=== PATIENT | female | born 1945 | race Caucasian/White ===

== ENCOUNTER 2016-05-04 10:56 | Emergency (ER) | payer MEDICARE ==
[~2016-05-04] VITALS: Ht 149.8 cm; Wt 65.3 kg
[~2016-05-04 10:56] MED LIST: ADVIL200 MG PO; AMOXICILLIN500 MG PO; AUGMENTIN 875 M1 TA1 PO; CIPRO250 MG PO; CITALOPRAM20 MG PO; CLINDAMYCIN300 MG PO; LEVAQUIN750 MG PO; PREDNISONE20 MG PO; PREDNISONE50 MG PO; RESTORIL15 MG PO; RESTORIL30 MG PO; ROBITUSSIN DM 105 ML PO; SYMBICORT1 AE1 INH; TEMAZEPAM30 MG PO; VIBRAMYCIN100 MG PO; VICODIN 5/500 505 MG PO; VICODIN ES 7501 TA1 PO; ZITHROMAX250 MG PO; ZOCOR40 MG PO; [UNRECOGNIZED DRUG - OTHER]
[2016-05-04 11:55] LABS: BASO % 0.7 % (0.0-1.0); EOS % 0.7 % (1.0-4.0); HEMATOCRIT 40.4 % (37.0-47.0); HEMOGLOBIN 13.2 g/dl (12.0-16.0); IG # 0.1 10*3/uL (0.0-0.1); LYMPH # 0.6 10*3/uL (1.3-4.4); LYMPH % 12.7 % (27.0-41.0); MEAN CELL VOLUME 93.1 fl (81.0-99.0); MEAN CORPUSCULAR HGB 30.4 pg (27.0-31.0); MEAN CORPUSCULAR HGB CONC 32.7 g/dl (33.0-37.0); MEAN PLATELET VOLUME 9.2 fl (9.6-12.3); MONO # 0.4 10*3/uL (0.1-1.0); MONO % 8.8 % (3.0-9.0); NEUT # 3.5 10*3/uL (2.3-7.9); PLATELET COUNT AUTOMATED 166 10*3/uL (130-400); RED BLOOD COUNT 4.34 10*6/uL (4.10-5.10); RED CELL DISTRI WIDTH 12.4 % (0-14.5); WHITE BLOOD COUNT 4.6 10*3/uL (4.8-10.8)
[2016-05-04 12:11] LABS: ALBUMIN 3.4 gm/dl (3.1-4.5); ALKALINE PHOSPHATASE 90 U/L (45-117); BILIRUBIN, TOTAL 0.4 mg/dl (0.2-1.0); BUN 18 mg/dl (7-24); CARBON DIOXIDE 23 mmol/L (21-32); CHLORIDE 106 mmol/L (98-107); EST GLOM FILT AFRICAN AMERICAN > 60 ml/min; GLUCOSE 86 mg/dL (65-99); POTASSIUM 3.6 mmol/L (3.5-5.1); SGOT/AST 20 IU/L (3-35); SGPT/ALT 24 U/L (12-78); SODIUM 141 mmol/L (136-145); TOTAL PROTEIN 7.1 gm/dL (6.4-8.2)
[2016-05-04 12:26] LABS: TROPONIN I < 0.015 ng/ml (<0.5)
[2016-05-04] MEDS ORDERED: DOXYCYCLINE100 M3 PO (13:07)
[2016-05-12] MEDS ORDERED: PREDNISONE10 MG PO (13:58)
[2016-05-12] MEDS ORDERED: VENTOLIN H0.09 MG/AC INH (13:58)
[2016-05-12] MEDS ORDERED: LISINOPRIL10 M1 PO (13:58)
[2016-05-12] MEDS ORDERED: LEVOFLOXACIN500 MG PO (13:58)
== END 2016-05-04 13:19 | disposition home or self-care (01) ==
LOC: ED 10:56
PROVIDERS: Internal Medicine
DX: J40 Bronchitis, not specified as acute or chronic (principal); Z88.0 Allergy status to penicillin; Z88.6 Allergy status to analgesic agent; Z79.899 Other long term (current) drug therapy

== ENCOUNTER → 2016-07-12 | Outpatient (CLI) | payer MEDICARE ==
[~2016-07-12] MED LIST changes: +DOXYCYCLINE100 M3 PO; +LEVOFLOXACIN500 MG PO; +LISINOPRIL10 M1 PO; +PREDNISONE10 MG PO; +VENTOLIN H0.09 MG/AC INH
== END | disposition home or self-care (01) ==
LOC: RAD 11:15
DX: M81.0 Age-related osteoporosis without current pathological fracture (principal)

== ENCOUNTER → 2017-10-13 | Outpatient (CLI) | payer MEDICARE ==
[~2017-10-13] MED LIST changes: +CEFDINIR300 MG PO; +LOPRESSOR25 MG PO; +MUCINEX ER600 MG PO
== END | disposition home or self-care (01) ==
LOC: MAMMO 08:32
DX: Z12.31 Encounter for screening mammogram for malignant neoplasm of breast (principal)

== ENCOUNTER 2017-10-15 18:37 | Inpatient (IN) | payer MEDICARE ==
[~2017-10-15] VITALS: Ht 149.8 cm; Wt 68.5 kg
--- NOTE | ~2017-10-15 | PR ---
[place], [place] PROGRESS NOTE NAME: JARAD ZAPIEN [facility] #: [id number] UNIT #: [id number] ROOM: [facility] DOCTOR: MOMO ADAN MD,ZULEMA BIRTHDATE: [birth year] DOS: 10/18/2017 SUBJECTIVE: The patient noted comfortable at this time, continued to show reduction and improvement in the respiratory symptoms, underwent cardiac stress test, which are noted normal. The patient was given the unfractionated therapeutic heparin, which was discontinued after that. Respiratory whaley, she has been doing very well at this time. Denies symptoms of coughing, sputum expectoration or any chest pain at the present time. The chest x-ray that has been ordered for the patient tomorrow was pending. OBJECTIVE: VITAL SIGNS: Which were recorded showed the temperature noted as normal. The respiratory rate of 18, heart rate of 70, blood pressure 145/69. Pulse ox saturation on 2 liters nasal cannula 95% saturation. HEENT: Head was atraumatic. Eyes nonicterus. NECK: Supple. CARDIOVASCULAR: S1, S2 is audible. LUNGS: The patient was noted without any wheezing. Crackles noted still in the right lower lung base. ABDOMEN: Soft, nontender. Bowel sounds present. EXTREMITIES: Noted without any acute edema. IMPRESSION: 1. Right lower lobe pneumonia with a small pleural fluid, which has been treated with intravenous antibiotic at this time. 2. Elevation of the troponin mildly nonspecific finding, significance unknown. PLAN OF TREATMENT: No changes in the plan of therapy. Proceed with the chest x-ray tomorrow morning, which is already ordered by the primary care attending to review. Continue antibiotics and other treatment therapy, plan of management. The patient could be transferred from the Intensive Care Unit to medical floor. ZULEMA BARR MD CM:PNTRANS [id number] ZULEMA ADAN MD 10/18/17 2332 interface
--- NOTE | ~2017-10-15 | EKG ---
[place], [place] ELECTROCARDIOGRAM REPORT NAME: JARAD ZAPIEN UNIT #: [id number] ROOM: [facility] DOCTOR: MARIA ESTHER ROY,TONYA BIRTHDATE: [birth year] DOS: 10/15/2017 TIME: 1933 hours. FINDINGS: 1. Normal sinus rhythm/sinus tachycardia at 106 beats per minute. 2. Minimal ST segment depression with T-wave abnormality in V3-V6 that raises the possibility of ischemia. 3. No previous tracing is available for comparison. TONYA MAYO MD CM:EKGRPT:ELECTROCARDIOGRAM REPORT 1139 [id number] TONYA MAYO MD
--- NOTE | ~2017-10-15 | PR ---
[place], [place] PROGRESS NOTE NAME: JARAD ZAPIEN [facility] #: [id number] UNIT #: [id number] ROOM: [facility] DOCTOR: MOMO ADAN MD,ZULEMA BIRTHDATE: [birth year] DOS: 10/17/2017 PULMONARY PROGRESS NOTE SUBJECTIVE: She has been noted with continued gradual reduction and improvement in respiratory symptoms of coughing and other symptoms. Denies any symptoms of chest pain or hemoptysis. She has been currently treated for the right lower lobe pneumonia. Blood cultures of the patient, which were taken 7th of this month in the Emergency Room, reported a gram-positive bacilli, pending identification sensitivities. She denies symptoms of hemoptysis. Continue on the intravenous therapeutic unfractionated heparin for the medical management of suspected non-ST segment elevation myocardial infarction. She denies symptoms of hematuria. Denies suprapubic pain. Remaining systems were reviewed, they were noted all negative. OBJECTIVE: VITAL SIGNS: For the patient which have been recorded shows she has a normal temperature, respiratory rate 16, heart rate 88, blood pressure 116/60-115/65, pulse oxygen saturation recorded on 2 liters nasal cannula 93% saturation. HEENT: Examination shows head was atraumatic. Eyes nonicterus. NECK: Supple. LUNGS: Decreased breath sounds. Crackles still noted in the right lower lobe. ABDOMEN: Soft, nontender. Bowel sounds present. EXTREMITIES: Without any acute edema. MUSCULOSKELETAL: No deformities. SKIN: Noted no abnormal lesions or rashes. CENTRAL NERVOUS SYSTEM: No focal deficit. LABORATORY DATA: Chest x-ray that was done yesterday noted with evidence of a small area of infiltration noted in the right lower lobe for this patient. There was no significant pleural fluid. Area of pulmonary fibrosis and/or infiltrate was also considered in the right lower lobe as well. Changes of COPD and hyperinflation. Pleural thickening noted in the left apex as well. IMPRESSION: 1. The patient currently noted with acute pneumonia involving the right lower lobe. 2. Gram-positive bacilli bacteremia. Contamination or severe infection is unknown. 3. Chronic change in pleural thickening noted in the left apex as well. 4. Non-ST segment elevation myocardial infarction, currently remains on the heparin, which was noted as therapeutic dose with PTT was noted as therapeutic at 70. PLAN OF MANAGEMENT: Continuation of antibiotics, bronchodilators, oxygen supplementation, cardiac workup. Bronchodilator, the treatment therapy, plan of management and care plan. Usual care. All other supportive plan of therapy and management, plan of care. Adjustment of the antibiotic will be done. The patient will discontinue the vancomycin and she will continue on aztreonam and [place], [place] PROGRESS NOTE NAME: JARAD ZAPIEN UNIT #: [id number] ROOM: [facility] DOCTOR: MOMO ADAN MD,ZULEMA BIRTHDATE: [birth year] Zithromax for the community-acquired infection. Other cardiac recommendation per Cardiology Services. ZULEMA BARR MD CM:PNTRANS [id number] ZULEMA ADAN MD 10/17/17 1340 interface
--- NOTE | ~2017-10-15 | PR ---
[place], [place] PROGRESS NOTE NAME: JARAD ZAPIEN [facility] #: [id number] UNIT #: [id number] ROOM: [facility] DOCTOR: AGUSTÍN ALDRICH MD BIRTHDATE: [birth year] DOS: 10/18/2017 SUBJECTIVE I saw her on behalf of Dr. Lagos. The patient was seen by Dr. Lagos yesterday. The patient had a stress test done by Dr. Rao. No evidence of ischemia. Ejection fraction is well preserved. The patient appears to be stable. She is still on heparin drip, which could be discontinued. REVIEW OF SYSTEMS: As per HPI. Does complaint of fever. Does have shortness of breath. No chest discomfort. Complains of diaphoresis. No abdominal pain, pressure is stable. OBJECTIVE: VITAL SIGNS: Her blood pressure is 140/60. She is in sinus rhythm. HEENT: Unremarkable. NECK: Supple, no JVD. LUNGS: Diminished air entry. Few coarse rhonchi. ABDOMEN: Soft, nontender. EXTREMITIES: Intact pulses. NEUROLOGIC: Stable. LABORATORY DATA: Sodium 142 and potassium 3.7. Hemoglobin 12.8 and hematocrit 40.3. IMPRESSION AND PLAN: Septicemia, pneumonia, exacerbation of chronic obstructive pulmonary disease, and elevated troponin, probably type 2. As the stress test is negative, no evidence of ischemia. Discontinue the heparin. Continue the IV antibiotics. Increase activity, and will follow up. The patient is examined in the Intensive Care Unit. AGUSTÍN ALDRICH MD CM:PNTRANS [id number] AGUSTÍN ALDRICH MD 10/25/17 0827 interface
--- NOTE | ~2017-10-15 | EKG ---
[place], [place] ELECTROCARDIOGRAM REPORT NAME: JARAD ZAPIEN UNIT #: [id number] ROOM: [facility] DOCTOR: TONYA MAYO MD BIRTHDATE: [birth year] DOS: 10/15/2017 TIME: 2245 hours. FINDINGS: 1. Normal sinus rhythm at 95 beats per minute with a single PVC. 2. Low voltage T waves in V3 to V6. 3. An abnormal ECG. 4. When compared with an ECG done at 1923 hours of the same day, minimal ST segment depression in chest leads has resolved. TONYA MAYO MD CM:EKGRPT:ELECTROCARDIOGRAM REPORT 1139 1511 TONYA MAYO MD
--- NOTE | ~2017-10-15 | CON ---
[place], [place] REPORT OF CONSULTATION NAME: JARAD ZAPIEN [facility] #: [id number] UNIT #: [id number] ROOM: [facility] DOCTOR: ZULEMA ABBASI MD BIRTHDATE: [birth year] DOS: 10/16/2017 PULMONARY CONSULTATION, EVALUATION AND MANAGEMENT REQUESTING PHYSICIAN: Dr. [place] Rao. REASON FOR CONSULTATION: For assessment of symptoms of COPD. HISTORY OF PRESENT ILLNESS: This is a 72-year-old white female patient who has been known with past history of COPD, which has been known previously, presented to the hospital under the hospitalist service, and admitted. She has been admitted to the hospital, as she has been experiencing symptoms of increased shortness of breath, which has been getting gradually worsen for the past couple of days. Symptoms, are not resolving. She was also noted with symptoms of coughing with some sputum expectoration. Denies symptoms of chest pain or hemoptysis. The wheezing was noted at times with chest tightness. She has been also reported with symptoms of hemoptysis. She had been admitted to the hospital. The patient was suspected with diagnosis of acute pneumonia with exacerbation of COPD. Since admission, the patient reported reduction of the respiratory symptom, the resolution was noted incomplete. REVIEW OF SYSTEMS: CONSTITUTIONAL: Symptoms of fever or chills, but noted with overall generalized weakness and fatigue. EYES: Denies any burning, redness, or tenderness. EARS, NOSE, AND THROAT: Denies sore throat, hoarseness, otalgia, postnasal drainage, or epistaxis. CARDIOVASCULAR: Denies angina pain, edema, or pain of the lower extremities. GASTROINTESTINAL: Dysphagia, nausea. The patient was noted with symptoms of vomiting and nausea, which has been treated intermittently with the use of Zofran, seemed to be controlled. Denies symptoms of hematemesis, melena, or hematochezia. GENITOURINARY: No dysuria, suprapubic pain, or hematuria. MUSCULOSKELETAL: Without any symptoms of joint pain, redness, or tenderness. SKIN: Denies abnormal lesions or rashes. CENTRAL NERVOUS SYSTEM: No dizziness, headache, diplopia, or syncopal episodes. Remaining systems were reviewed. They were noted all negative. PAST MEDICAL HISTORY: 1. Severe chronic obstructive pulmonary disease, noted in 2015. 2. Past history of tuberculosis in 1985, treated and noted in remission. 3. General anxiety disorder and depression. 4. Colon cancer. PAST SURGICAL HISTORY: 1. Partial colectomy in 2007. 2. Incisional hernia repair and separation of adhesions of the abdomen. 3. Exploratory laparotomy and appendectomy. 4. Complete hysterectomy. [place], [place] REPORT OF CONSULTATION NAME: JARAD ZAPIEN UNIT #: [id number] ROOM: [facility] DOCTOR: MOMO ADAN MD,ZULEMA BIRTHDATE: [birth year] SOCIAL HISTORY: The patient is , has 4 children, lives at home. Smoking started at age of [age] years old, smoked less than a pack of cigarettes until 1984. No history of alcohol use or illicit drugs. FAMILY HISTORY: The patient's father at 76 of complications of cancer, unknown primary. The mother with complications of unknown cancer and myocardial infarction. MEDICATIONS: The current medication administered noted use of metoprolol tartrate, citalopram, Mucinex, aspirin, Dulera, Solu-Medrol 80 mg b.i.d., magnesium hydroxide, DuoNeb q.4 hours, Levaquin, and Zithromax. DRUG ALLERGY HISTORY: NOTED ALLERGY TO: 1. PENICILLIN. 2. ____. 3. WELLBUTRIN. PHYSICAL EXAMINATION: GENERAL: A 72-year-old white female currently noted comfortable at this time, sitting on a bed in ICU, height of 4 feet 11 inches, weight of 151 pounds, and BMI 30.5. VITAL SIGNS: Normal temperature, respiratory rate 17-26, heart rate of 87-110, blood pressure 140/61-190/65. Pulse oxygen saturation on 2 liters 95% saturation was recorded. Room air on admission was 90%. HEENT: Head was atraumatic. Eye nonicterus. NECK: Supple. CARDIOVASCULAR: S1, S2 is audible. LUNGS: The patient noted moderate reduction of the breath sounds bilaterally. Crackles noted at the right lung base. Expiratory wheezing was present. ABDOMEN: Soft, nontender. Bowel sounds present. EXTREMITIES: Without any acute edema, clubbing, or cyanosis. MUSCULOSKELETAL: The patient was noted without any acute deformities. CENTRAL NERVOUS SYSTEM: Cranial nerves 2-12 are noted intact. SKIN: Visible skin without any lesions or rashes. LABORATORY DATA: The CBC that was done yesterday on admission, WBC count ____ hemoglobin and hematocrit, and platelet count normal. Lactic acid 1.7 yesterday. PT/PTT normal yesterday. The CMP that was done on 10/15/2017, glucose 175, BUN 22, creatinine was normal. Troponin was noted mildly elevated. Yesterday troponin was 0.147, first set. The second set was noted at the same level as well. Third set, 0.094. Troponin was noted this morning. BMP today, glucose 205, BUN and creatinine were normal. Electrolytes normal. CBC was noted essentially normal today. Chest x-ray 1 view suggested possibility of acute infiltration with a small pleural fluid in the right lower lobe. Changes of COPD were present. The chest x-ray was ordered to be done today, PA and lateral view. The unfractionated heparin, which was given therapeutic noted with a PTT of 62.5 this morning, which is therapeutic. IMPRESSION: [place], [place] REPORT OF CONSULTATION NAME: JARAD ZAPIEN UNIT #: [id number] ROOM: [facility] DOCTOR: MOMO ADAN MD,ZULEMA BIRTHDATE: [birth year] 1. The patient will be currently admitted to the hospital. The patient was noted with acute exacerbation of chronic obstructive pulmonary disease with associated acute pneumonia involving the right lower lung is a possibility with clinical examination suggested by the chest x-ray as well. However, the finding needs to be confirmed for the patient with a repeat chest x-ray, PA and lateral view for more accurate identification. 2. The patient suspicion of a non-ST segment elevation myocardial infarction. The patient currently treated with unfractionated therapeutic heparin. 3. Symptoms of nausea and vomiting, unclear at this time, may be related to cardiac problem or other etiologies. 4. Past history of nicotine dependence. 5. Acute exacerbation of chronic obstructive pulmonary disease. PLAN OF MANAGEMENT: Continue current antibiotics and bronchodilators as well as corticosteroids. The dose of corticosteroids will be decreased to 40 mg b.i.d. at the present time. Continuation of the medical management, ____ ST segment elevation myocardial infarction per Cardiology service assessment. Obtain a PA and lateral chest x-ray. The urine for Legionella antigen and strep antigen were ordered as well. All other supportive therapy and plan of management will be continued as previously. ZULEMA BARR MD CM:CONSTR:REPORT OF CONSULTATION 1513 10/17/17 0150 interface
--- NOTE | ~2017-10-15 | EKG ---
[place], [place] ELECTROCARDIOGRAM REPORT NAME: JARAD ZAPIEN UNIT #: [id number] ROOM: [facility] DOCTOR: TONYA MAYO MD BIRTHDATE: [birth year] DOS: 10/16/2017 TIME: 0726 hours. FINDINGS: 1. Normal sinus rhythm at 83 beats per minute. 2. Low voltage T waves in lateral chest leads and T-wave inversion in V1-V3. This is suggestive of anterior wall ischemia. 3. No previous tracing is available for comparison. TONYA MAYO MD CM:EKGRPT:ELECTROCARDIOGRAM REPORT 1144 1529 TONYA MAYO MD
--- NOTE | ~2017-10-15 | PR ---
[place], [place] PROGRESS NOTE [id number] UNIT #: [id number] ROOM: [facility] DOCTOR: MOMO ADAN MD,ZULEMA BIRTHDATE: [birth year] DOS: 10/19/2017 PULMONARY PROGRESS NOTE SUBJECTIVE: The patient noted comfortable at this time, resting on a bed at this time without any acute distress. She has been noted ambulatory as well. The patient was made ____ from yesterday. There was no coughing, chest pain or acute shortness of breath. OBJECTIVE: VITAL SIGNS: Normal temperature, respiratory rate 16, heart rate 79, blood pressure 144/83. Pulse oxygen saturation on room air 95% saturation. HEENT: No acute change. NECK: Supple. CARDIOVASCULAR: S1, S2 is audible. LUNGS: The patient was noted without any wheezing or crackles. ABDOMEN: Soft, nontender. EXTREMITIES: Without acute edema. LABORATORY DATA: Chest x-ray done this morning, PA lateral was reviewed, which shows marked improvement, aeration of the lungs on the left side with resolution of the pleural fluid. 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 PLAN OF MANAGEMENT: The patient could be discharged home today on oral medication. The outpatient followup could be done for this patient after discharge. No other changes in the medical management will be recommended. ZULEMA BARR MD CM:PNTRANS 1135 [id number] ZULEMA ADAN MD 10/20/17 0230 interface
--- NOTE | ~2017-10-15 | CON ---
[place], [place] REPORT OF CONSULTATION NAME: JARAD ZAPIEN UNIT #: [id number] ROOM: [facility] DOCTOR: TONYA MAYO MD BIRTHDATE: [birth year] DOS: 10/16/2017 HISTORY OF PRESENT ILLNESS: This is a very pleasant, delightful 72-year-old -[place] lady, who is very, very active despite her significant COPD. She has never had essential hypertension, diabetes, any cardiac problems, rhythm disorder of the heart, kidney problems, cancer, or stroke. She has had colon resection and had abdominal abscess, partial hysterectomy. She quit smoking some 14 years ago. FAMILY HISTORY: Negative for premature coronary artery disease. Her has a cold and was diagnosed with acute bronchitis yesterday. Day before yesterday, she had mild chills and yesterday became rather abruptly more short of breath later in the day and she had no chest pain, palpitations, hardly any cough. No dizziness or loss of consciousness. In the past, she has had exertional chest tightness, pressure, particularly when she does more than her Tuesday activity. This has been going on for over a year. When she stopped, the feeling eased up rather rapidly. This is obviously accompanied by shortness of breath because of COPD. She has not had any swelling of the legs or any pain in the legs when she walks. No PND, orthopnea, or loss of consciousness. HOME MEDICATIONS: Include Ventolin HFA, Symbicort is 160/4.5, ibuprofen 200 q.i.d. p.r.n., citalopram 20 mg daily, and temazepam 30 mg at bedtime. ALLERGIES: SHE HAS ALLERGY TO PENICILLIN AND ALSO HAS HAD PROBLEM WITH WELLBUTRIN AND CODEINE. PHYSICAL EXAMINATION: GENERAL: Revealed a patient, who is short. She is very pleasant, alert, oriented, fairly comfortable. Her complexion is fine. She is not cyanotic, nor jaundiced. There is no thyromegaly or finger clubbing. VITAL SIGNS: Pulse is 96 regular, blood pressure 120/64. NECK: JVP is normal. AJR is negative. There is no carotid bruit. HEART: There is no cardiomegaly. Auscultation reveals normal aortic component of the first heart sound. However, the pulmonic component seems to be little loud. EXTREMITIES: Good pedal pulses and no edema in the lower extremities. RESPIRATORY: She has oxygen on and is mildly tachypneic. Percussion note is normal. Auscultation reveals moderately reduced breath sound. There is marked adventitious sounds in the right lower zone than the left. No rub was present. ABDOMEN: Scars are noted. Bowel sounds are normal. There is no bruit. There is no organomegaly or any rebound tenderness. DIAGNOSTIC STUDIES: First ECG demonstrated normal sinus rhythm at 106 beats per minute with minimal ST segment depression with T-wave abnormality in V2-V6 and second ECG demonstrated flattened T waves in anterior chest were inverted. The first and the third ECG demonstrates normal sinus rhythm at 83 beats per minute and T-wave inversion in V1-V4 with flattened V5 and V6. [place], [place] REPORT OF CONSULTATION NAME: JARAD ZAPIEN UNIT #: [id number] ROOM: [facility] DOCTOR: TONYA MAYO MD BIRTHDATE: [birth year] LABORATORY DATA: Chest x-ray demonstrates small right pleural effusion with some atelectasis, may be pneumonia. No pulmonary edema was present. Initial troponin I level was 0.069 that toby to 0.147 and has come down to 0.094. IMPRESSION: 1. Chronic obstructive pulmonary disease exacerbation, probably from pneumonia. 2. Possible non-ST elevation acute myocardial infarction with the background of chronic exertional angina. There is a possibility that troponin elevation was due to type 2 myocardial infarction, namely supply demand imbalance; however, since EKG is abnormal I think this probably is due to epicardial coronary artery stenosis. RECOMMENDATIONS: A Lexiscan Cardiolite study should be done tomorrow along with an echocardiogram. If this stress test shows any evidence of ischemia, I would have low threshold for myocardial ischemia. Her P2 sound is somewhat loud that is suggestive of pulmonary hypertension. Therefore, echocardiogram should pay particular attention to assess pulmonary artery systolic pressure. She is already on aspirin and I would like her on a beta chel, therefore, metoprolol tartrate 12.5 mg b.i.d. being started to slow down the heart rate. I thank you for this consult. TONYA MAYO MD CM:CONSTR:REPORT OF CONSULTATION 1030 11/04/17 0715 interface
[~2017-10-15 18:37] MED LIST changes: -CEFDINIR300 MG PO; -LOPRESSOR25 MG PO; -MUCINEX ER600 MG PO
[2017-10-15 18:38] VITALS: BP 130/59
[2017-10-15 19:26] LABS: BASO % 0.3 % (0.0-1.0); EOS # 0.1 10*3/uL (0.0-0.4); EOS % 0.6 % (1.0-4.0); HEMATOCRIT 41.8 % (37.0-47.0); HEMOGLOBIN 13.9 g/dl (12.0-16.0); LYMPH # 0.7 10*3/uL (1.3-4.4); LYMPH % 6.1 % (27.0-41.0); MEAN CELL VOLUME 93.7 fl (81.0-99.0); MEAN CORPUSCULAR HGB 31.2 pg (27.0-31.0); MEAN CORPUSCULAR HGB CONC 33.3 g/dl (33.0-37.0); MEAN PLATELET VOLUME 9.5 fl (9.6-12.3); MONO # 0.6 10*3/uL (0.1-1.0); NEUT % 87.5 % (47.0-73.0); PLATELET COUNT AUTOMATED 193 10*3/uL (130-400); RED BLOOD COUNT 4.46 10*6/uL (4.10-5.10); RED CELL DISTRI WIDTH 12.3 % (0-14.5); WHITE BLOOD COUNT 11.4 10*3/uL (4.8-10.8)
[2017-10-15 19:36] LABS: ACT PARTIAL THROMBO TIME 21.3 SECONDS (20.8-31.5)
[2017-10-15 19:40] VITALS: BP 151/80
[2017-10-15 19:43] LABS: ALBUMIN 3.8 gm/dl (3.1-4.5); ALKALINE PHOSPHATASE 109 U/L (45-117); BUN 22 mg/dl (7-24); CHLORIDE 104 mmol/L (98-107); POTASSIUM 3.6 mmol/L (3.5-5.1); SGOT/AST 14 IU/L (3-35); SGPT/ALT 21 U/L (12-78); SODIUM 138 mmol/L (136-145); TOTAL PROTEIN 7.3 gm/dL (6.4-8.2)
[2017-10-15 19:48] LABS: TROPONIN I 0.069 ng/ml (<0.045)
[2017-10-15 20:40] VITALS: BP 132/68
[2017-10-15 21:13] VITALS: BP 128/70
[2017-10-15 21:45] VITALS: BP 140/61
[2017-10-16] VITALS: BP 100/51
[2017-10-16 04:00] VITALS: BP 109/65
[2017-10-16 05:54] LABS: BUN 17 mg/dl (7-24); CHLORIDE 108 mmol/L (98-107); CREATININE 0.68 mg/dL (0.55-1.02); POTASSIUM 3.8 mmol/L (3.5-5.1); SODIUM 140 mmol/L (136-145)
[2017-10-16 06:00] LABS: HEMATOCRIT 41.1 % (37.0-47.0); HEMOGLOBIN 13.3 g/dl (12.0-16.0); MEAN CORPUSCULAR HGB 31.1 pg (27.0-31.0); MEAN CORPUSCULAR HGB CONC 32.4 g/dl (33.0-37.0); MEAN PLATELET VOLUME 9.8 fl (9.6-12.3); PLATELET COUNT AUTOMATED 161 10*3/uL (130-400); RED BLOOD COUNT 4.28 10*6/uL (4.10-5.10); RED CELL DISTRI WIDTH 12.4 % (0-14.5)
[2017-10-16 07:24] LABS: PLATELET SUFFICIENCY NORMAL (NORMAL); TOTAL CELLS COUNTED 100 #CELLS
[2017-10-16 08:00] VITALS: BP 120/64
[2017-10-16 12:00] VITALS: BP 110/50
[2017-10-16 16:00] VITALS: BP 112/56
[2017-10-16 20:00] VITALS: BP 109/52
[2017-10-17] VITALS: BP 102/79
[2017-10-17 04:00] VITALS: BP 115/65
[2017-10-17 08:00] VITALS: BP 116/62
[2017-10-17 11:32] LABS: HEMATOCRIT 40.3 % (37.0-47.0); HEMOGLOBIN 12.8 g/dl (12.0-16.0); MEAN CELL VOLUME 97.6 fl (81.0-99.0); MEAN CORPUSCULAR HGB CONC 31.8 g/dl (33.0-37.0); MEAN PLATELET VOLUME 9.7 fl (9.6-12.3); PLATELET COUNT AUTOMATED 190 10*3/uL (130-400); RED BLOOD COUNT 4.13 10*6/uL (4.10-5.10); RED CELL DISTRI WIDTH 12.5 % (0-14.5)
[2017-10-17 11:43] LABS: BUN 22 mg/dl (7-24); CHLORIDE 111 mmol/L (98-107); CREATININE 0.84 mg/dL (0.55-1.02); PHOSPHOROUS 2.1 mg/dL (2.5-4.9); POTASSIUM 3.7 mmol/L (3.5-5.1); SODIUM 142 mmol/L (136-145)
[2017-10-17 11:58] LABS: PLATELET SUFFICIENCY NORMAL (NORMAL); TOTAL CELLS COUNTED 100 #CELLS
[2017-10-17 14:00] VITALS: BP 120/64
[2017-10-17 16:00] VITALS: BP 118/62
[2017-10-17 20:00] VITALS: BP 127/55
[2017-10-17 20:49] LABS: BILIRUBIN NEGATIVE (NEGATIVE); BLOOD 1+ (NEGATIVE); CLARITY CLEAR (CLEAR); COLOR YELLOW (YELLOW); GLUCOSE 3+ (NEGATIVE); KETONE TRACE (NEGATIVE); LEUKO ESTERASE NEGATIVE (NEGATIVE); NITRITE NEGATIVE (NEGATIVE); PH 5.5 (5.0-9.0); SPECIFIC GRAVITY >= 1.030 (1.005-1.030)
[2017-10-17 21:02] LABS: BACTERIA 1+; MUCOUS 1+
[2017-10-17 21:04] LABS: RBC 21-30 rbc/hpf (0-2)
[2017-10-17 21:05] LABS: CALCIUM OXALATE CRYSTALS 1+
[2017-10-18] VITALS: BP 130/68
[2017-10-18 04:00] VITALS: BP 143/66
[2017-10-18 05:46] LABS: BASO % 0.1 % (0.0-1.0); HEMATOCRIT 35.7 % (37.0-47.0); HEMOGLOBIN 11.5 g/dl (12.0-16.0); LYMPH # 0.6 10*3/uL (1.3-4.4); LYMPH % 7.2 % (27.0-41.0); MEAN CELL VOLUME 96.7 fl (81.0-99.0); MEAN CORPUSCULAR HGB 31.2 pg (27.0-31.0); MEAN CORPUSCULAR HGB CONC 32.2 g/dl (33.0-37.0); MEAN PLATELET VOLUME 9.6 fl (9.6-12.3); MONO # 0.2 10*3/uL (0.1-1.0); MONO % 2.8 % (3.0-9.0); NEUT # 7.2 10*3/uL (2.3-7.9); NEUT % 88.7 % (47.0-73.0); PLATELET COUNT AUTOMATED 183 10*3/uL (130-400); RED BLOOD COUNT 3.69 10*6/uL (4.10-5.10); RED CELL DISTRI WIDTH 12.8 % (0-14.5); WHITE BLOOD COUNT 8.1 10*3/uL (4.8-10.8)
[2017-10-18 05:58] LABS: BUN 25 mg/dl (7-24); CHLORIDE 111 mmol/L (98-107); CREATININE 0.74 mg/dL (0.55-1.02); PHOSPHOROUS 2.7 mg/dL (2.5-4.9); POTASSIUM 3.9 mmol/L (3.5-5.1); SODIUM 144 mmol/L (136-145)
[2017-10-18 08:00] VITALS: BP 140/60; BP 146/69
[2017-10-18 12:00] VITALS: BP 145/69
[2017-10-18 16:00] VITALS: BP 150/70
[2017-10-18 20:00] VITALS: BP 145/50
[2017-10-19] VITALS: BP 150/74
[2017-10-19 05:48] LABS: BUN 25 mg/dl (7-24); CHLORIDE 108 mmol/L (98-107); CREATININE 0.67 mg/dL (0.55-1.02); POTASSIUM 4.1 mmol/L (3.5-5.1); SODIUM 142 mmol/L (136-145)
[2017-10-19 06:11] LABS: BASO % 0.4 % (0.0-1.0); HEMATOCRIT 36.9 % (37.0-47.0); HEMOGLOBIN 11.8 g/dl (12.0-16.0); LYMPH # 0.7 10*3/uL (1.3-4.4); LYMPH % 8.8 % (27.0-41.0); MEAN CELL VOLUME 96.6 fl (81.0-99.0); MEAN CORPUSCULAR HGB 30.9 pg (27.0-31.0); MEAN PLATELET VOLUME 9.6 fl (9.6-12.3); MONO # 0.2 10*3/uL (0.1-1.0); MONO % 2.8 % (3.0-9.0); NEUT # 6.7 10*3/uL (2.3-7.9); NEUT % 85.6 % (47.0-73.0); PLATELET COUNT AUTOMATED 198 10*3/uL (130-400); RED BLOOD COUNT 3.82 10*6/uL (4.10-5.10); RED CELL DISTRI WIDTH 12.6 % (0-14.5); WHITE BLOOD COUNT 7.8 10*3/uL (4.8-10.8)
[2017-10-19 08:00] VITALS: BP 144/83
[2017-10-19] MEDS ORDERED: MUCINEX ER600 MG PO (12:06)
[2017-10-19] MEDS ORDERED: LOPRESSOR25 MG PO (12:06)
[2017-10-19] MEDS ORDERED: PREDNISONE10 MG PO (12:07)
[2017-10-19] MEDS ORDERED: CEFDINIR300 MG PO (12:07)
[2017-10-21 14:10] LABS: ORGANISM ID Final report (.); RESULT 1 Actinomyces species (.)
== END 2017-10-19 12:20 | disposition home or self-care (01) | DRG 871 ==
LOC: ED 18:37 → EDHOLD 20:05 → ICCU 20:05
PROVIDERS: Internal Medicine; Internal Medicine Nephrology; Student in an Organized Health Care Education/Training Program
PROC: 4A02XM4 Measurement of Cardiac Total Activity, External Approach (ICD-10-PCS; principal; 2017-10-17)
PROC: 3E073KZ Introduction of Other Diagnostic Substance into Coronary Artery, Percutaneous Approach (ICD-10-PCS; principal; 2017-10-17)
DX: A41.9 Sepsis, unspecified organism (principal); I21.4 Non-ST elevation (NSTEMI) myocardial infarction; J18.1 Lobar pneumonia, unspecified organism; J18.0 Bronchopneumonia, unspecified organism; J44.0 Chronic obstructive pulmonary disease with (acute) lower respiratory infection; J44.1 Chronic obstructive pulmonary disease with (acute) exacerbation; F33.9 Major depressive disorder, recurrent, unspecified; R65.20 Severe sepsis without septic shock; E87.8 Other disorders of electrolyte and fluid balance, not elsewhere classified; R73.9 Hyperglycemia, unspecified; E83.39 Other disorders of phosphorus metabolism; R74.8 Abnormal levels of other serum enzymes; B96.89 Other specified bacterial agents as the cause of diseases classified elsewhere; I20.8 Other forms of angina pectoris; F41.1 Generalized anxiety disorder; E66.09 Other obesity due to excess calories; M81.0 Age-related osteoporosis without current pathological fracture; Z88.0 Allergy status to penicillin; Z88.6 Allergy status to analgesic agent; Z88.8 Allergy status to other drugs, medicaments and biological substances; Z79.899 Other long term (current) drug therapy; Z90.710 Acquired absence of both cervix and uterus; Z90.49 Acquired absence of other specified parts of digestive tract; Z87.891 Personal history of nicotine dependence; Z82.49 Family history of ischemic heart disease and other diseases of the circulatory system; Z80.3 Family history of malignant neoplasm of breast; Z80.59 Family history of malignant neoplasm of other urinary tract organ; Z80.8 Family history of malignant neoplasm of other organs or systems; Z83.3 Family history of diabetes mellitus; Z81.8 Family history of other mental and behavioral disorders; Z85.038 Personal history of other malignant neoplasm of large intestine; Z86.11 Personal history of tuberculosis; Z68.30 Body mass index [BMI] 30.0-30.9, adult

== ENCOUNTER → 2017-10-27 | Outpatient (CLI) | payer MEDICARE ==
[~2017-10-27] MED LIST changes: +CEFDINIR300 MG PO; +LOPRESSOR25 MG PO; +MUCINEX ER600 MG PO
== END | disposition home or self-care (01) ==
LOC: LAB 08:11
DX: J18.1 Lobar pneumonia, unspecified organism (principal); A42.9 Actinomycosis, unspecified

== ENCOUNTER 2017-12-09 11:58 | Emergency (ER) | payer MEDICARE ==
[~2017-12-09] VITALS: Ht 149.8 cm; Wt 65.8 kg
--- NOTE | ~2017-12-09 | EKG ---
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
[2017-12-09 13:36] LABS: BASO % 0.5 % (0.0-1.0); EOS # 0.1 10*3/uL (0.0-0.4); EOS % 1.1 % (1.0-4.0); HEMATOCRIT 39.8 % (37.0-47.0); HEMOGLOBIN 13.2 g/dl (12.0-16.0); LYMPH # 0.9 10*3/uL (1.3-4.4); LYMPH % 11.8 % (27.0-41.0); MEAN CELL VOLUME 93.9 fl (81.0-99.0); MEAN CORPUSCULAR HGB 31.1 pg (27.0-31.0); MEAN CORPUSCULAR HGB CONC 33.2 g/dl (33.0-37.0); MEAN PLATELET VOLUME 9.3 fl (9.6-12.3); MONO # 0.5 10*3/uL (0.1-1.0); MONO % 6.1 % (3.0-9.0); NEUT # 5.9 10*3/uL (2.3-7.9); NEUT % 80.1 % (47.0-73.0); PLATELET COUNT AUTOMATED 172 10*3/uL (130-400); RED BLOOD COUNT 4.24 10*6/uL (4.10-5.10); RED CELL DISTRI WIDTH 12.7 % (0-14.5); WHITE BLOOD COUNT 7.4 10*3/uL (4.8-10.8)
[2017-12-09 13:43] LABS: BILIRUBIN NEGATIVE (NEGATIVE); BLOOD NEGATIVE (NEGATIVE); CLARITY CLEAR (CLEAR); COLOR YELLOW (YELLOW); GLUCOSE NEGATIVE (NEGATIVE); KETONE 1+ (NEGATIVE); LEUKO ESTERASE NEGATIVE (NEGATIVE); NITRITE NEGATIVE (NEGATIVE); UROBILINOGEN 0.2 E.U./dl (0.2-1.0)
[2017-12-09 13:45] LABS: ACT PARTIAL THROMBO TIME 22.9 SECONDS (20.8-31.5); INTERNATIONAL NORM RATIO 1.1 (2.0-3.5)
[2017-12-09 13:51] LABS: ALBUMIN 3.4 gm/dl (3.1-4.5); ALKALINE PHOSPHATASE 88 U/L (45-117); BUN 17 mg/dl (7-24); CHLORIDE 105 mmol/L (98-107); CREATININE 0.58 mg/dL (0.55-1.02); LIPASE 92 U/L (73-393); POTASSIUM 3.6 mmol/L (3.5-5.1); SGOT/AST 19 IU/L (3-35); SGPT/ALT 28 U/L (12-78); SODIUM 138 mmol/L (136-145); TOTAL PROTEIN 6.9 gm/dL (6.4-8.2)
[2017-12-09 13:52] LABS: TROPONIN I < 0.015 ng/ml (<0.045)
[2017-12-09 13:53] LABS: BACTERIA 1+; MUCOUS 1+
== END 2017-12-09 15:35 ==
LOC: ED 11:58
PROVIDERS: Emergency Medicine
DX: S72.91XA Unspecified fracture of right femur, initial encounter for closed fracture (principal); J44.9 Chronic obstructive pulmonary disease, unspecified; M81.0 Age-related osteoporosis without current pathological fracture; Z88.0 Allergy status to penicillin; Z88.6 Allergy status to analgesic agent; Z79.899 Other long term (current) drug therapy; Z87.891 Personal history of nicotine dependence; Z90.711 Acquired absence of uterus with remaining cervical stump; W18.30XA Fall on same level, unspecified, initial encounter; Y93.89 Activity, other specified; Y92.89 Other specified places as the place of occurrence of the external cause; Y99.8 Other external cause status

== ENCOUNTER 2018-01-02 14:02 | Emergency (ER) | payer MEDICARE ==
[~2018-01-02] VITALS: Wt 64.4 kg
[2018-01-02 14:34] LABS: BASO % 0.5 % (0.0-1.0); EOS # 0.1 10*3/uL (0.0-0.4); EOS % 1.9 % (1.0-4.0); HEMATOCRIT 41.4 % (37.0-47.0); LYMPH # 1.3 10*3/uL (1.3-4.4); LYMPH % 20.1 % (27.0-41.0); MEAN CELL VOLUME 95.2 fl (81.0-99.0); MEAN CORPUSCULAR HGB 29.9 pg (27.0-31.0); MEAN CORPUSCULAR HGB CONC 31.4 g/dl (33.0-37.0); MONO # 0.5 10*3/uL (0.1-1.0); MONO % 7.3 % (3.0-9.0); NEUT # 4.5 10*3/uL (2.3-7.9); NEUT % 69.9 % (47.0-73.0); PLATELET COUNT AUTOMATED 336 10*3/uL (130-400); RED BLOOD COUNT 4.35 10*6/uL (4.10-5.10); RED CELL DISTRI WIDTH 12.6 % (0-14.5); WHITE BLOOD COUNT 6.4 10*3/uL (4.8-10.8)
[2018-01-02 14:49] LABS: ACT PARTIAL THROMBO TIME 38.9 SECONDS (20.8-31.5)
[2018-01-02 14:50] LABS: ALBUMIN 3.8 gm/dl (3.1-4.5); ALKALINE PHOSPHATASE 184 U/L (45-117); BUN 17 mg/dl (7-24); CHLORIDE 106 mmol/L (98-107); POTASSIUM 3.7 mmol/L (3.5-5.1); SGOT/AST 17 IU/L (3-35); SGPT/ALT 26 U/L (12-78); SODIUM 139 mmol/L (136-145); TOTAL PROTEIN 7.6 gm/dL (6.4-8.2)
[2018-01-02 14:56] LABS: INTERNATIONAL NORM RATIO 6.5 (2.0-3.5)
== END 2018-01-02 15:05 | disposition home or self-care (01) ==
LOC: ED 14:02
PROVIDERS: Nurse Practitioner Family
DX: R79.1 Abnormal coagulation profile (principal); J44.9 Chronic obstructive pulmonary disease, unspecified; E66.9 Obesity, unspecified; M81.0 Age-related osteoporosis without current pathological fracture; Z87.891 Personal history of nicotine dependence; Z79.899 Other long term (current) drug therapy; Z88.0 Allergy status to penicillin; Z88.6 Allergy status to analgesic agent

== ENCOUNTER → 2018-02-06 | Outpatient (CLI) | payer MEDICARE | END | disposition home or self-care (01) | LOC: LAB 14:27 | DX: B34.9 Viral infection, unspecified (principal) ==

== ENCOUNTER → 2018-07-18 | Outpatient (CLI) | payer MEDICARE ==
[~2018-07-18] MED LIST changes: +ATORVASTATIN CA20 M1 PO; +IBU800 MG PO; +LEVAQUIN750 M1 PO; +LEVOFLOXAC500 MG/100 IV; +METRONIDAZ500 MG/101 IV; +OXYGEN NAS; +PROAIR HFA8.5 GM INH; +RESTORIL30 M1 PO; +SOLU-MEDRO40 MG/1 ML IV; +SYMB160 INH; +TRAMADOL HCL50 MG PO; +ULTRAM50 MG PO
== END | disposition home or self-care (01) ==
LOC: RESCLI 02:26
DX: M81.0 Age-related osteoporosis without current pathological fracture (principal); M54.9 Dorsalgia, unspecified; G47.00 Insomnia, unspecified; J44.9 Chronic obstructive pulmonary disease, unspecified; F41.9 Anxiety disorder, unspecified; F32.9 Major depressive disorder, single episode, unspecified; Z76.89 Persons encountering health services in other specified circumstances; Z79.899 Other long term (current) drug therapy; Z87.891 Personal history of nicotine dependence; Z90.710 Acquired absence of both cervix and uterus

== ENCOUNTER → 2018-10-11 | Outpatient (CLI) | payer MEDICARE | END | disposition home or self-care (01) | LOC: RESCLI 00:19 | DX: J44.9 Chronic obstructive pulmonary disease, unspecified (principal); F39 Unspecified mood [affective] disorder; M81.0 Age-related osteoporosis without current pathological fracture; F32.9 Major depressive disorder, single episode, unspecified; Z79.899 Other long term (current) drug therapy; Z87.891 Personal history of nicotine dependence ==

== ENCOUNTER → 2018-11-10 | Outpatient (CLI) | payer MEDICARE | END | disposition home or self-care (01) | LOC: RESCLI 00:07 | DX: Z09 Encounter for follow-up examination after completed treatment for conditions other than malignant neoplasm (principal); J44.9 Chronic obstructive pulmonary disease, unspecified; M81.0 Age-related osteoporosis without current pathological fracture; F41.9 Anxiety disorder, unspecified; E55.9 Vitamin D deficiency, unspecified; F32.9 Major depressive disorder, single episode, unspecified; G47.00 Insomnia, unspecified; M54.9 Dorsalgia, unspecified; Z79.899 Other long term (current) drug therapy; Z87.891 Personal history of nicotine dependence ==

== ENCOUNTER → 2019-01-19 | Outpatient (CLI) | payer MEDICARE | LOC: RESCLI 00:49 | DX: J44.9 Chronic obstructive pulmonary disease, unspecified (principal); M81.0 Age-related osteoporosis without current pathological fracture; F41.9 Anxiety disorder, unspecified; E55.9 Vitamin D deficiency, unspecified; F32.9 Major depressive disorder, single episode, unspecified; G47.00 Insomnia, unspecified; M54.9 Dorsalgia, unspecified; Z79.899 Other long term (current) drug therapy; Z87.891 Personal history of nicotine dependence ==

== ENCOUNTER → 2019-05-02 | Outpatient (CLI) | payer MEDICARE ==
[~2019-05-02] MED LIST changes: +LEVAQUIN500 M2 PO; +MUCINEX1200 M1 PO
== END | disposition home or self-care (01) ==
LOC: RESCLI 10:50
DX: M81.0 Age-related osteoporosis without current pathological fracture (principal); J44.9 Chronic obstructive pulmonary disease, unspecified; F41.9 Anxiety disorder, unspecified; E55.9 Vitamin D deficiency, unspecified; F32.9 Major depressive disorder, single episode, unspecified; G47.00 Insomnia, unspecified; M54.9 Dorsalgia, unspecified; Z79.899 Other long term (current) drug therapy; Z90.710 Acquired absence of both cervix and uterus

== ENCOUNTER 2019-05-11 15:38 | Inpatient (IN) | payer MEDICARE ==
[2019-05-11] VITALS (8 sets, daily range): BP systolic 120–157; BP diastolic 50–121
[~2019-05-11] VITALS: Ht 149.8 cm; Wt 63.6 kg
[~2019-05-11 15:38] MED LIST changes: -LEVAQUIN500 M2 PO; -MUCINEX1200 M1 PO
[2019-05-11 15:59] LABS: BASO % 0.3 % (0.0-1.0); EOS # 0.1 10*3/uL (0.0-0.4); EOS % 1.3 % (1.0-4.0); HEMATOCRIT 45.4 % (37.0-47.0); HEMOGLOBIN 14.9 g/dl (12.0-16.0); LYMPH # 0.7 10*3/uL (1.3-4.4); LYMPH % 7.3 % (27.0-41.0); MEAN CORPUSCULAR HGB 31.5 pg (27.0-31.0); MEAN CORPUSCULAR HGB CONC 32.8 g/dl (33.0-37.0); MEAN PLATELET VOLUME 9.3 fl (9.6-12.3); MONO # 0.7 10*3/uL (0.1-1.0); MONO % 7.3 % (3.0-9.0); NEUT # 7.9 10*3/uL (2.3-7.9); NEUT % 83.4 % (47.0-73.0); PLATELET COUNT AUTOMATED 171 10*3/uL (130-400); RED BLOOD COUNT 4.73 10*6/uL (4.10-5.10); RED CELL DISTRI WIDTH 12.3 % (0-14.5); WHITE BLOOD COUNT 9.5 10*3/uL (4.8-10.8)
[2019-05-11 16:10] LABS: ACT PARTIAL THROMBO TIME 24.8 SECONDS (20.0-32.1)
[2019-05-11 16:14] LABS: ALKALINE PHOSPHATASE 110 U/L (45-117); BUN 17 mg/dl (7-24); CHLORIDE 103 mmol/L (98-107); CREATININE 0.73 mg/dL (0.55-1.02); POTASSIUM 3.7 mmol/L (3.5-5.1); SGOT/AST 16 IU/L (3-35); SGPT/ALT 24 U/L (12-78); SODIUM 138 mmol/L (136-145); TOTAL PROTEIN 7.6 gm/dL (6.4-8.2)
[2019-05-11 16:21] LABS: TROPONIN I < 0.015 ng/ml (<0.045)
--- NOTE | 2019-05-11 17:27 | NUR ---
PT REPORTS CHEST PAIN HAS RESOLVED AFTER MORPHINE ADMINISTRATION.
--- NOTE | 2019-05-11 18:30 | NUR ---
PT TO CT. CONDITION STABLE.
--- NOTE | 2019-05-11 19:06 | NUR ---
PT RETURNED FROM CT WITH INFILTRATION TO LFA IV SITE WITH CONTRAST. LFA IV SITE FLUSHED FREELY WITH BRISK BLOOD RETURN UPON INTIATION. PER CT STAFF, IV ADEQUATELY FLUSHED FOR TEST DOSE AND THE FIRST APPROX 10 ML OF CONTRAST. UNKNOWN AMOUNT OF CONTRAST INFILTRATED. PT HAS A LARGE REDDENED EDEMATOUS AREA AT IV SITE. WOUND PHOTO TAKEN. PROVIDER AWARE AND HAS EVALUATED. SEE PROVIDER AND CT NOTES. PT HAS C/O PAIN AT IV SITE. SITE DISCONTINUED AFTER WOUND PHOTO TAKEN.
--- NOTE | 2019-05-11 19:50 | NUR ---
PT REPORTS INCREASED CHEST PAIN. PROVIDER NOTIFIED.
--- NOTE | 2019-05-11 21:00 | NUR ---
A 73, admitted to , under the services of JOVAN Gong DO with a diagnosis of DYSPNEA, ELEVATED TROPONINS. Chief complaint is SHORTNESS OF BREATH WITH COUGH X 2 DAYS. Patient arrived via stretcher from ER. Monitor applied. Initial assessment completed. Vital signs taken and recorded. JOVAN GONG DO notified of admission to the unit. Orders received. See assessment for past medical history, medications and allergies. Patient and/or family oriented to unit. [facility] visitation policy reviewed. Clothing/patient valuable form completed. LILLIAN FAUST
--- NOTE | 2019-05-11 21:34 | NUR ---
MEDICATION LIST REVIEWED WITH PATIENT.
--- NOTE | 2019-05-11 21:45 | NUR ---
PATIENT CURRENTLY REFUSING FLU VACCINE. WANTS TO BE ASKED AGAIN LATER WHEN SHE IS FEELING BETTER.
--- NOTE | 2019-05-11 22:09 | NUR ---
DR. ALDRIDGE NOTIFIED OF CRITICAL TROPONIN OF 0.061.
--- NOTE | 2019-05-11 22:18 | NUR ---
SPOKE WITH JOAQUIN AT ANSWERING SERVICE REGARDING CONSULT AND TROPONIN LAB VALUES.
--- NOTE | 2019-05-11 22:30 | NUR ---
DR. VILLEGAS NOTIFIED OF CONSULT AND CRITICAL LAB VALUES FOR TROPONIN. ORDERS RECEIVED.
[2019-05-12] VITALS: BP 129/66
[2019-05-12 03:56] LABS: HEMATOCRIT 38.5 % (37.0-47.0); HEMOGLOBIN 12.5 g/dl (12.0-16.0); MEAN CELL VOLUME 97.7 fl (81.0-99.0); MEAN CORPUSCULAR HGB 31.7 pg (27.0-31.0); MEAN CORPUSCULAR HGB CONC 32.5 g/dl (33.0-37.0); MEAN PLATELET VOLUME 8.8 fl (9.6-12.3); PLATELET COUNT AUTOMATED 145 10*3/uL (130-400); RED BLOOD COUNT 3.94 10*6/uL (4.10-5.10); RED CELL DISTRI WIDTH 12.4 % (0-14.5); WHITE BLOOD COUNT 5.9 10*3/uL (4.8-10.8)
[2019-05-12 04:10] LABS: ALKALINE PHOSPHATASE 84 U/L (45-117); BUN 13 mg/dl (7-24); CHLORIDE 107 mmol/L (98-107); CHOLESTEROL 172 mg/dL (<200); CREATININE 0.63 mg/dL (0.55-1.02); HDL CHOLESTEROL 66 mg/dl (40-60); LDL CHOLESTEROL 91 mg/dL (9-159); POTASSIUM 4.3 mmol/L (3.5-5.1); SGOT/AST 10 IU/L (3-35); SGPT/ALT 21 U/L (12-78); SODIUM 141 mmol/L (136-145); TOTAL PROTEIN 6.1 gm/dL (6.4-8.2); TRIGLYCERIDES 73 mg/dl (<150); VLDL CHOLESTEROL 15 mg/dL (6-40)
[2019-05-12 04:11] LABS: FREE T4 1.18 ng/dl (0.76-1.46)
[2019-05-12 04:15] LABS: THYROID STIM HORMONE (HS) 0.345 uIU/ml (0.358-4.75)
[2019-05-12 04:50] LABS: PLATELET SUFFICIENCY LOW (NORMAL); TOTAL CELLS COUNTED 100 #CELLS
[2019-05-12 07:50] LABS: VITAMIN D, 25-HYDROXY 33.9 ng/mL (30-100)
[2019-05-12 08:00] VITALS: BP 98/60
--- NOTE | 2019-05-12 08:00 | NUR ---
Pt on 3L NC 95%. Decreased O2 to 2L. Will check back.
--- NOTE | 2019-05-12 10:29 | NUR ---
Stock Room Manager in to talk to patient. Patient states lives at home with family. There are no steps in the home. Physician: [facility]acy[facility] Home health services: none Patient's level of ADLs: INDEPENDENT Patient has working utilities: all working DME: home oxygen she uses at hs Follow-up physician's appointment after d/c: will be made by hospitalist nurse director upon discharge Does patient want to access PORTAL?: no Discharge plan discussed with patient, she lives at home with family, she is independent in adls and ambualtion, she states she has home oxygen she uses occasionally at hs, she states she will return home when medically stable, discussed with her VNA and educated her on the services the provide, she stated she was familiar with VNA and didn't feel she needed any at this time, case management will follow. RAJI SANTACRUZ
[2019-05-12 12:00] VITALS: BP 104/53
--- NOTE | 2019-05-12 15:52 | NUR ---
Medicated with norco per prn order for complaints of headache.
[2019-05-12 16:00] VITALS: BP 102/40
--- NOTE | 2019-05-12 16:50 | NUR ---
States that brandt effective.
[2019-05-12 20:00] VITALS: BP 113/48
--- NOTE | 2019-05-12 21:49 | NUR ---
PRN RESTORIL GIVEN FOR PT COMPLAINTS OF SLEEPLESSNESS. CALL LIGHT WITHIN REACH, WILL MONITOR
[2019-05-13] VITALS: BP 110/50
--- NOTE | 2019-05-13 | NUR ---
PRN RESTORIL APPEARS EFFECTIVE, PT SLEEPING
--- NOTE | 2019-05-13 02:20 | NUR ---
PATIENT SLEEPING, NO DISTRESS NOTED. O2 INTACT. CALL LIGHT WIHTIN REACH, WILL MONITOR
[2019-05-13 06:23] LABS: BASO % 0.2 % (0.0-1.0); HEMATOCRIT 36.1 % (37.0-47.0); HEMOGLOBIN 11.5 g/dl (12.0-16.0); LYMPH # 0.4 10*3/uL (1.3-4.4); MEAN CELL VOLUME 96.8 fl (81.0-99.0); MEAN CORPUSCULAR HGB 30.8 pg (27.0-31.0); MEAN CORPUSCULAR HGB CONC 31.9 g/dl (33.0-37.0); MEAN PLATELET VOLUME 9.8 fl (9.6-12.3); MONO # 0.2 10*3/uL (0.1-1.0); MONO % 3.2 % (3.0-9.0); NEUT # 4.5 10*3/uL (2.3-7.9); PLATELET COUNT AUTOMATED 151 10*3/uL (130-400); RED BLOOD COUNT 3.73 10*6/uL (4.10-5.10); RED CELL DISTRI WIDTH 12.3 % (0-14.5)
[2019-05-13 06:24] LABS: BUN 17 mg/dl (7-24); CHLORIDE 109 mmol/L (98-107); CREATININE 0.64 mg/dL (0.55-1.02); POTASSIUM 4.2 mmol/L (3.5-5.1); SODIUM 139 mmol/L (136-145)
[2019-05-13 08:00] VITALS: BP 108/52
--- NOTE | 2019-05-13 08:00 | NUR ---
Patient resting quietly with no c/o discomfort. Respirations easy and regular. Vital signs stable. No overt distress. JAMAL INIGUEZ
--- NOTE | 2019-05-13 11:32 | NUR ---
Pt taken down to 2L NC. Her home use [facility].
[2019-05-13 12:00] VITALS: BP 120/61
--- NOTE | 2019-05-13 14:30 | NUR ---
PT TRANSFERED FROM 409 TO 508, BELONGINGS REMAIN WITH PATIENT. REPORT RECEIVED FROM ESTHELA BERRY.
--- NOTE | 2019-05-13 14:33 | NUR ---
PT COMPLAIN OF HEADACHE AND BODY ACHE FROM COUGHING. NORCO GIVEN. WILL MONITOR FOR EFFECTIVENESS
--- NOTE | 2019-05-13 15:24 | NUR ---
NORCO EFFECTIV FOR PAIN
[2019-05-13 16:00] VITALS: BP 130/71
[2019-05-13 20:00] VITALS: BP 138/61
--- NOTE | 2019-05-13 21:17 | NUR ---
PATIENT IS AAOX3, RESTING IN BED WITH EASY ABND REGULAR RESPERS ON 2L VIA NC. ASSESSMENT IS COMPLETE WITH NO C/O OR S/S OF DISTRESS NOTED AT THIS TIME. BED IS LOW, LOCKED, AND CALL LIGHT IS WITHIN REACH. WILL CONTINUE TO MONITOR.
--- NOTE | 2019-05-13 22:00 | NUR ---
IV started left forearm with #22 angiocath. The IV site was prepped with Chloraprep. Heparin lock attached. Sterile dressing applied. Patient tolerated precedure well. Procedure performed according to [facility] policy & procedure. OTIS MARTINEZ
[2019-05-14] VITALS: BP 117/64
--- NOTE | 2019-05-14 00:30 | NUR ---
PATIENT SLEEPING WITH NONLABORED RESPERS ON 2L O2 VIA NC. CALL LIGHT IS [employer] REACH.
--- NOTE | 2019-05-14 02:36 | NUR ---
CHART CHECK COMPETE.
--- NOTE | 2019-05-14 05:37 | NUR ---
JARAD ZAPIEN [id number] Please refer to the physician's history and physical for past medical history, comorbid conditions, and allergies. Diagnosis: DYSPNEA ELEVATED TROPONIN Derek Score: 17,AT RISK WOUND DESCRIPTIONS: This nurse went into to evaluate patient's skin impairment of left arm. Left arm dark red and purple in color measuring 30.0cm x 12.0cm x <0.1cm. No warmth noted at time of assessment. Patient state this was from her IV with contrast that happened a couple of days ago. Patient stated she had another IV go bad and start to bubble. No open areas at time of assessment. No drainage noted at time of assessment. Surface the patient is resting on: [employer] SKIN PREVENTION RECOMMENDATION: 1. Pressure redistribution support surface as appropriate 2. Elevate heels 3. Remove boots/TEDS every shift and reapply 4. Head of bed 30 degrees as tolerated 5. Assess nutrition and hydration 6. Manage moisture 7. Avoid the use of containment devices while in bed 8. Use absorptive products on surfaces limit layers of linens on bed 9. Turn and reposition every 1-2 hours in bed and every 1 hour in chair as tolerated 10. Weight shifts every 15 minutes while up in chair 11. Offloading with pillows or device to keep heels elevated off bed 12. Monitor skin at least every shift 13. Inspect under medical devices twice a day
[2019-05-14 08:00] VITALS: BP 129/58
--- NOTE | 2019-05-14 09:00 | NUR ---
case management visits with patient, she states she will be discharged home today, discussed with her VNA and she declines any home needs at this time
[2019-05-14 11:26] VITALS: BP 132/80
[2019-05-14] MEDS ORDERED: LEVAQUIN500 M2 PO (11:38)
[2019-05-14] MEDS ORDERED: MUCINEX1200 M1 PO (11:38)
[2019-05-14] MEDS ORDERED: PREDNISONE10 MG PO (11:38)
--- NOTE | 2019-05-14 12:50 | NUR ---
PATIENT DISCHARGED TO HOME. ALL PERSONAL BELONGINGS SENT WITH PATIENT. IV DISCONTINUED. DISCHARGE INSTRUCTIONS GIVEN AND REVIEWED WITH PATIENT. PATIENT ASKED RN TO SEND PRESCRIPTIONS TO OUR PHARMACY AND SHE WILL PICK THEM UP LATER. PATIENT INSTRUCTED THAT OUTPATIENT PHARMACY CLOSES AT 530PM.
== END 2019-05-14 12:50 | disposition home or self-care (01) | DRG 871 ==
LOC: ED 15:38 → 5E 20:19 → EDHOLD 20:19 → 4E 20:19 → 5E 05-13 14:15
PROVIDERS: Emergency Medicine; Internal Medicine; ADMIT Family Medicine
DX: A41.9 Sepsis, unspecified organism (principal); J18.9 Pneumonia, unspecified organism; J96.01 Acute respiratory failure with hypoxia; J44.1 Chronic obstructive pulmonary disease with (acute) exacerbation; J44.0 Chronic obstructive pulmonary disease with (acute) lower respiratory infection; R65.20 Severe sepsis without septic shock; R07.89 Other chest pain; R73.9 Hyperglycemia, unspecified; G89.29 Other chronic pain; M81.0 Age-related osteoporosis without current pathological fracture; F32.9 Major depressive disorder, single episode, unspecified; I25.10 Atherosclerotic heart disease of native coronary artery without angina pectoris; F41.9 Anxiety disorder, unspecified; E66.3 Overweight; Z68.28 Body mass index [BMI] 28.0-28.9, adult; I25.2 Old myocardial infarction; Z87.891 Personal history of nicotine dependence; Z88.5 Allergy status to narcotic agent; Z88.0 Allergy status to penicillin; Z88.8 Allergy status to other drugs, medicaments and biological substances; Z90.49 Acquired absence of other specified parts of digestive tract; Z90.710 Acquired absence of both cervix and uterus; Z82.49 Family history of ischemic heart disease and other diseases of the circulatory system; Z80.3 Family history of malignant neoplasm of breast; Z80.8 Family history of malignant neoplasm of other organs or systems; Z79.899 Other long term (current) drug therapy

== ENCOUNTER → 2019-05-22 | Outpatient (CLI) | payer MEDICARE ==
[~2019-05-22] MED LIST changes: +LEVAQUIN500 M2 PO; +MUCINEX1200 M1 PO
== END | disposition home or self-care (01) ==
LOC: RESCLI 05:39
DX: Z09 Encounter for follow-up examination after completed treatment for conditions other than malignant neoplasm (principal); J44.9 Chronic obstructive pulmonary disease, unspecified; I25.10 Atherosclerotic heart disease of native coronary artery without angina pectoris; F32.9 Major depressive disorder, single episode, unspecified; I25.2 Old myocardial infarction; M81.0 Age-related osteoporosis without current pathological fracture; J01.90 Acute sinusitis, unspecified; Z79.899 Other long term (current) drug therapy; Z88.0 Allergy status to penicillin; Z88.8 Allergy status to other drugs, medicaments and biological substances; Z90.710 Acquired absence of both cervix and uterus; Z90.89 Acquired absence of other organs; Z87.891 Personal history of nicotine dependence

== ENCOUNTER → 2019-10-09 | Outpatient (CLI) | payer MEDICARE | END | disposition home or self-care (01) | LOC: RESCLI 00:51 | DX: J44.9 Chronic obstructive pulmonary disease, unspecified (principal); M81.0 Age-related osteoporosis without current pathological fracture; I25.10 Atherosclerotic heart disease of native coronary artery without angina pectoris; F32.9 Major depressive disorder, single episode, unspecified; F41.9 Anxiety disorder, unspecified; G47.00 Insomnia, unspecified; Z90.710 Acquired absence of both cervix and uterus; Z98.890 Other specified postprocedural states; Z85.038 Personal history of other malignant neoplasm of large intestine; Z79.899 Other long term (current) drug therapy; Z90.49 Acquired absence of other specified parts of digestive tract; Z88.8 Allergy status to other drugs, medicaments and biological substances; Z87.891 Personal history of nicotine dependence ==

== ENCOUNTER → 2019-12-19 | Outpatient (CLI) | payer MEDICARE | END | disposition home or self-care (01) | LOC: RESCLI 00:43 | PROVIDERS: ATTEND Student in an Organized Health Care Education/Training Program | DX: M81.0 Age-related osteoporosis without current pathological fracture (principal); I25.10 Atherosclerotic heart disease of native coronary artery without angina pectoris; G47.00 Insomnia, unspecified; F41.9 Anxiety disorder, unspecified; J44.9 Chronic obstructive pulmonary disease, unspecified; D64.9 Anemia, unspecified; E53.8 Deficiency of other specified B group vitamins; Z79.899 Other long term (current) drug therapy; Z85.038 Personal history of other malignant neoplasm of large intestine; Z86.711 Personal history of pulmonary embolism; Z86.11 Personal history of tuberculosis; Z98.890 Other specified postprocedural states; Z90.710 Acquired absence of both cervix and uterus; Z87.891 Personal history of nicotine dependence; Z88.0 Allergy status to penicillin; Z88.8 Allergy status to other drugs, medicaments and biological substances ==

== ENCOUNTER → 2020-04-01 | Outpatient (CLI) | payer MEDICARE ==
[~2020-04-01] MED LIST changes: +IBANDRONATE SO150 M1 PO; +SPIRIVA RESPIMAT4 GM INH
== END | disposition home or self-care (01) ==
LOC: RESCLI 00:13
PROVIDERS: ATTEND Internal Medicine
DX: R07.9 Chest pain, unspecified (principal); R73.03 Prediabetes; I20.8 Other forms of angina pectoris; J44.9 Chronic obstructive pulmonary disease, unspecified; M19.90 Unspecified osteoarthritis, unspecified site; Z79.899 Other long term (current) drug therapy; Z88.0 Allergy status to penicillin; Z88.8 Allergy status to other drugs, medicaments and biological substances

== ENCOUNTER → 2020-04-02 | Outpatient (CLI) | payer MEDICARE ==
--- NOTE | 2020-04-02 10:10 | NUR ---
INFORMED CONSENT SIGNED FOR LEXISCAN STRESS TEST WITH DR. VILLEGAS. RESTING EKG NSR WITH RARE PVC, HR 80, BP 128/84. PULSE OX 96% AND LUNGS CLEAR. COMPLETED ONE MINUTE OF LEXISCAN PROTOCOL RECEIVING LEXISCAN 0.4MG OVER 10 SECONDS. NO ARRHYTHMIAS OR ST CHANGES NOTED. PT C/O CHEST PRESSURE. LAST RECOVERY HR 95, BP 126/71. WAITING NUCLEAR SCANNING IN STABLE CONDITION.
== END | disposition home or self-care (01) ==
LOC: CARD 00:06
PROVIDERS: ATTEND Student in an Organized Health Care Education/Training Program
DX: I20.8 Other forms of angina pectoris (principal); R53.81 Other malaise

== ENCOUNTER 2020-05-08 09:39 | Inpatient (IN) | payer MEDICARE ==
[~2020-05-08] VITALS: Ht 149.8 cm; Wt 65.0 kg
[2020-05-08] VITALS (11 sets, daily range): BP systolic 109–138; BP diastolic 50–85
[2020-05-08 10:02] LABS: BASO % 0.6 % (0.0-1.0); EOS # 0.2 10*3/uL (0.0-0.4); EOS % 2.6 % (1.0-4.0); HEMATOCRIT 42.3 % (37.0-47.0); LYMPH # 1.1 10*3/uL (1.3-4.4); LYMPH % 17.3 % (27.0-41.0); MEAN CELL VOLUME 95.3 fl (81.0-99.0); MEAN CORPUSCULAR HGB 31.1 pg (27.0-31.0); MEAN CORPUSCULAR HGB CONC 32.6 g/dl (33.0-37.0); MEAN PLATELET VOLUME 9.4 fl (9.6-12.3); MONO # 0.5 10*3/uL (0.1-1.0); MONO % 7.3 % (3.0-9.0); NEUT # 4.7 10*3/uL (2.3-7.9); NEUT % 71.7 % (47.0-73.0); PLATELET COUNT AUTOMATED 202 10*3/uL (130-400); RED BLOOD COUNT 4.44 10*6/uL (4.10-5.10); RED CELL DISTRI WIDTH 12.2 % (0-14.5); WHITE BLOOD COUNT 6.6 10*3/uL (4.8-10.8)
[2020-05-08 10:12] LABS: ACT PARTIAL THROMBO TIME 24.5 SECONDS (20.0-32.1); ALBUMIN 3.4 gm/dl (3.1-4.5); ALKALINE PHOSPHATASE 92 U/L (45-117); BUN 14 mg/dl (7-24); CHLORIDE 110 mmol/L (98-107); CREATININE 0.67 mg/dL (0.55-1.02); INTERNATIONAL NORM RATIO 1.1 (2.0-3.5); POTASSIUM 4.1 mmol/L (3.5-5.1); SGOT/AST 16 IU/L (3-35); SGPT/ALT 23 U/L (12-78); SODIUM 141 mmol/L (136-145); TOTAL PROTEIN 6.8 gm/dL (6.4-8.2)
[2020-05-08 10:14] LABS: TROPONIN I 0.052 ng/ml (<0.045)
[2020-05-09] VITALS: BP 126/68
[2020-05-09 05:56] LABS: ALKALINE PHOSPHATASE 81 U/L (45-117); BUN 14 mg/dl (7-24); CHLORIDE 108 mmol/L (98-107); CHOLESTEROL 188 mg/dL (<200); CREATININE 0.71 mg/dL (0.55-1.02); FREE T4 1.22 ng/dl (0.76-1.46); HDL CHOLESTEROL 56 mg/dl (40-60); LDL CHOLESTEROL 101 mg/dL (9-159); POTASSIUM 3.9 mmol/L (3.5-5.1); SGOT/AST 13 IU/L (3-35); SGPT/ALT 20 U/L (12-78); SODIUM 141 mmol/L (136-145); TOTAL PROTEIN 5.9 gm/dL (6.4-8.2); TRIGLYCERIDES 154 mg/dl (<150); VLDL CHOLESTEROL 31 mg/dL (6-40)
[2020-05-09 06:07] LABS: BASO % 0.4 % (0.0-1.0); EOS # 0.2 10*3/uL (0.0-0.4); EOS % 3.4 % (1.0-4.0); HEMATOCRIT 40.6 % (37.0-47.0); LYMPH # 1.6 10*3/uL (1.3-4.4); LYMPH % 29.5 % (27.0-41.0); MEAN CELL VOLUME 98.1 fl (81.0-99.0); MEAN CORPUSCULAR HGB 30.7 pg (27.0-31.0); MEAN CORPUSCULAR HGB CONC 31.3 g/dl (33.0-37.0); MEAN PLATELET VOLUME 9.4 fl (9.6-12.3); MONO # 0.4 10*3/uL (0.1-1.0); MONO % 7.8 % (3.0-9.0); NEUT # 3.2 10*3/uL (2.3-7.9); NEUT % 58.5 % (47.0-73.0); PLATELET COUNT AUTOMATED 186 10*3/uL (130-400); RED BLOOD COUNT 4.14 10*6/uL (4.10-5.10); RED CELL DISTRI WIDTH 12.3 % (0-14.5); WHITE BLOOD COUNT 5.5 10*3/uL (4.8-10.8)
[2020-05-09 08:00] VITALS: BP 118/43
[2020-05-09 12:00] VITALS: BP 138/77
[2020-05-09 16:00] VITALS: BP 124/58
[2020-05-09 20:00] VITALS: BP 109/59
[2020-05-10] VITALS: BP 120/63
[2020-05-10 06:30] LABS: BASO % 0.5 % (0.0-1.0); BUN 19 mg/dl (7-24); CHLORIDE 110 mmol/L (98-107); CREATININE 0.68 mg/dL (0.55-1.02); EOS # 0.1 10*3/uL (0.0-0.4); EOS % 2.5 % (1.0-4.0); HEMATOCRIT 37.4 % (37.0-47.0); LYMPH # 1.5 10*3/uL (1.3-4.4); LYMPH % 33.1 % (27.0-41.0); MEAN CELL VOLUME 98.7 fl (81.0-99.0); MEAN CORPUSCULAR HGB 31.7 pg (27.0-31.0); MEAN CORPUSCULAR HGB CONC 32.1 g/dl (33.0-37.0); MEAN PLATELET VOLUME 9.6 fl (9.6-12.3); MONO # 0.4 10*3/uL (0.1-1.0); MONO % 9.5 % (3.0-9.0); NEUT # 2.4 10*3/uL (2.3-7.9); NEUT % 53.9 % (47.0-73.0); PLATELET COUNT AUTOMATED 169 10*3/uL (130-400); POTASSIUM 4.2 mmol/L (3.5-5.1); RED BLOOD COUNT 3.79 10*6/uL (4.10-5.10); RED CELL DISTRI WIDTH 12.4 % (0-14.5); SODIUM 142 mmol/L (136-145); WHITE BLOOD COUNT 4.4 10*3/uL (4.8-10.8)
[2020-05-10 08:00] VITALS: BP 114/76
[2020-05-10 12:00] VITALS: BP 122/68
[2020-05-10 16:00] VITALS: BP 102/75
[2020-05-10 20:00] VITALS: BP 115/59
[2020-05-11] VITALS: BP 113/51
[2020-05-11 06:44] LABS: BASO % 0.3 % (0.0-1.0); EOS # 0.2 10*3/uL (0.0-0.4); EOS % 3.2 % (1.0-4.0); HEMATOCRIT 39.2 % (37.0-47.0); LYMPH # 1.9 10*3/uL (1.3-4.4); MEAN CELL VOLUME 98.7 fl (81.0-99.0); MEAN CORPUSCULAR HGB CONC 32.4 g/dl (33.0-37.0); MEAN PLATELET VOLUME 9.4 fl (9.6-12.3); MONO # 0.5 10*3/uL (0.1-1.0); MONO % 8.4 % (3.0-9.0); NEUT # 3.4 10*3/uL (2.3-7.9); NEUT % 56.8 % (47.0-73.0); PLATELET COUNT AUTOMATED 194 10*3/uL (130-400); RED BLOOD COUNT 3.97 10*6/uL (4.10-5.10); RED CELL DISTRI WIDTH 12.3 % (0-14.5)
[2020-05-11 06:51] LABS: BUN 17 mg/dl (7-24); CHLORIDE 108 mmol/L (98-107); CREATININE 0.71 mg/dL (0.55-1.02); POTASSIUM 3.8 mmol/L (3.5-5.1); SODIUM 141 mmol/L (136-145)
[2020-05-11 08:00] VITALS: BP 143/87
[2020-05-11] MEDS ORDERED: ATORVASTATIN CA40 M1 PO (09:37)
[2020-05-11] MEDS ORDERED: IMDUR SA30 MG PO (09:37)
[2020-05-11 12:00] VITALS: BP 104/65
[2020-05-11 16:00] VITALS: BP 119/76
[2020-05-11 20:00] VITALS: BP 127/74
[2020-05-12] VITALS: BP 133/78
== END 2020-05-12 08:37 | disposition short-term general hospital (02) | DRG 281 ==
LOC: ED 09:39 → EDHOLD 10:24 → 5E 13:14
PROVIDERS: Emergency Medicine; Family Medicine; Internal Medicine; ADMIT Internal Medicine; ATTEND Internal Medicine
DX: I21.4 Non-ST elevation (NSTEMI) myocardial infarction (principal); J98.11 Atelectasis; J44.9 Chronic obstructive pulmonary disease, unspecified; F32.9 Major depressive disorder, single episode, unspecified; S22.080D Wedge compression fracture of T11-T12 vertebra, subsequent encounter for fracture with routine healing; M81.0 Age-related osteoporosis without current pathological fracture; X58.XXXD Exposure to other specified factors, subsequent encounter; E55.9 Vitamin D deficiency, unspecified; F41.9 Anxiety disorder, unspecified; E87.8 Other disorders of electrolyte and fluid balance, not elsewhere classified; R73.9 Hyperglycemia, unspecified; I25.10 Atherosclerotic heart disease of native coronary artery without angina pectoris; K21.9 Gastro-esophageal reflux disease without esophagitis; Z87.891 Personal history of nicotine dependence; Z88.0 Allergy status to penicillin; Z20.822 Contact with and (suspected) exposure to COVID-19; Z88.5 Allergy status to narcotic agent; Z88.8 Allergy status to other drugs, medicaments and biological substances; Z82.49 Family history of ischemic heart disease and other diseases of the circulatory system; Z80.3 Family history of malignant neoplasm of breast; Z88.6 Allergy status to analgesic agent; Z79.51 Long term (current) use of inhaled steroids; Z79.899 Other long term (current) drug therapy

== ENCOUNTER → 2020-07-17 | Outpatient (CLI) | payer MEDICARE ==
[~2020-07-17] MED LIST changes: +ATORVASTATIN CA40 M1 PO; +IMDUR SA30 MG PO
== END | disposition home or self-care (01) ==
LOC: CARD 14:00
PROVIDERS: ATTEND Clinical Nurse Specialist Adult Health
DX: I51.7 Cardiomegaly (principal); I51.81 Takotsubo syndrome

== ENCOUNTER → 2020-11-24 | Outpatient (CLI) | payer MEDICARE ==
[2020-11-24 13:32] LABS: BASO % 0.5 % (0.0-1.0); EOS # 0.2 10*3/uL (0.0-0.4); EOS % 2.5 % (1.0-4.0); HEMATOCRIT 43.1 % (37.0-47.0); LYMPH # 1.2 10*3/uL (1.3-4.4); LYMPH % 19.3 % (27.0-41.0); MEAN CELL VOLUME 98.2 fl (81.0-99.0); MEAN CORPUSCULAR HGB 31.9 pg (27.0-31.0); MEAN CORPUSCULAR HGB CONC 32.5 g/dl (33.0-37.0); MEAN PLATELET VOLUME 9.2 fl (9.6-12.3); MONO # 0.5 10*3/uL (0.1-1.0); MONO % 7.1 % (3.0-9.0); NEUT # 4.5 10*3/uL (2.3-7.9); NEUT % 70.3 % (47.0-73.0); PLATELET COUNT AUTOMATED 200 10*3/uL (130-400); RED BLOOD COUNT 4.39 10*6/uL (4.10-5.10); RED CELL DISTRI WIDTH 12.5 % (0-14.5); WHITE BLOOD COUNT 6.4 10*3/uL (4.8-10.8)
[2020-11-24 13:50] LABS: ALBUMIN 3.7 gm/dl (3.1-4.5); ALKALINE PHOSPHATASE 88 U/L (45-117); BUN 16 mg/dl (7-24); CHLORIDE 108 mmol/L (98-107); CREATININE 0.61 mg/dL (0.55-1.02); FREE T4 1.11 ng/dl (0.76-1.46); POTASSIUM 3.6 mmol/L (3.5-5.1); SGOT/AST 14 IU/L (3-35); SGPT/ALT 24 U/L (12-78); SODIUM 141 mmol/L (136-145); TOTAL PROTEIN 7.1 gm/dL (6.4-8.2)
[2020-11-24 13:56] LABS: THYROID STIM HORMONE (HS) 0.603 uIU/ml (0.358-4.75)
== END | disposition home or self-care (01) ==
LOC: LAB 00:21 → RAD 13:30 → MAMMO 14:00
PROVIDERS: ATTEND Internal Medicine
DX: Z12.31 Encounter for screening mammogram for malignant neoplasm of breast (principal); Z13.820 Encounter for screening for osteoporosis; N64.89 Other specified disorders of breast; M81.0 Age-related osteoporosis without current pathological fracture; Z78.0 Asymptomatic menopausal state; Z79.899 Other long term (current) drug therapy

== ENCOUNTER → 2021-03-02 | Outpatient (CLI) | payer MEDICARE | END | disposition home or self-care (01) | LOC: RESCLI 02:28 | PROVIDERS: ATTEND Internal Medicine Nephrology | DX: J44.9 Chronic obstructive pulmonary disease, unspecified (principal); M81.0 Age-related osteoporosis without current pathological fracture; E53.8 Deficiency of other specified B group vitamins; I25.10 Atherosclerotic heart disease of native coronary artery without angina pectoris; G47.00 Insomnia, unspecified; F41.9 Anxiety disorder, unspecified; Z88.0 Allergy status to penicillin; Z88.1 Allergy status to other antibiotic agents; Z88.8 Allergy status to other drugs, medicaments and biological substances; Z90.49 Acquired absence of other specified parts of digestive tract; Z90.710 Acquired absence of both cervix and uterus; Z98.890 Other specified postprocedural states; Z79.899 Other long term (current) drug therapy ==

== ENCOUNTER 2021-03-28 16:34 | Emergency (ER) | payer MEDICARE ==
[~2021-03-28] VITALS: Wt 59.4 kg
[2021-03-28 18:52] LABS: BILIRUBIN Negative (Negative); BLOOD 3+ (Negative); CLARITY Turbid (Clear); COLOR Yellow (Yellow); GLUCOSE Negative (Negative); KETONE Trace (Negative); LEUKO ESTERASE 3+ (Negative); NITRITE Negative (Negative); PH 5.5 (4.5-8.0); SPECIFIC GRAVITY 1.025 (1.001-1.030)
[2021-03-28 19:33] LABS: WBC TNTC wbc/hpf (0-5)
[2021-03-28] MEDS ORDERED: SEPTDS PO (20:54)
== END 2021-03-28 21:15 | disposition home or self-care (01) ==
LOC: ED 16:34
PROVIDERS: Emergency Medicine
DX: K59.00 Constipation, unspecified (principal); N39.0 Urinary tract infection, site not specified

== ENCOUNTER → 2021-08-31 | Outpatient (CLI) | payer MEDICARE ==
[~2021-08-31] MED LIST changes: +SEPTDS PO
== END | disposition home or self-care (01) ==
LOC: RESCLI 01:27
PROVIDERS: ATTEND Internal Medicine Nephrology
DX: M81.0 Age-related osteoporosis without current pathological fracture (principal); J44.9 Chronic obstructive pulmonary disease, unspecified; I25.10 Atherosclerotic heart disease of native coronary artery without angina pectoris; G47.00 Insomnia, unspecified; F41.9 Anxiety disorder, unspecified; Z79.899 Other long term (current) drug therapy; Z88.8 Allergy status to other drugs, medicaments and biological substances; Z88.0 Allergy status to penicillin

== ENCOUNTER 2021-11-12 13:49 | Emergency (ER) | payer MEDICARE ==
[~2021-11-12] VITALS: Wt 59.9 kg
[2021-11-12] MEDS ORDERED: KENALOG 0.1%80 GM T (16:39)
[2021-11-12] MEDS ORDERED: CEPHALEXIN500 M1 PO (16:39)
== END 2021-11-12 16:59 | disposition home or self-care (01) ==
LOC: ED 13:49
DX: S60.862A Insect bite (nonvenomous) of left wrist, initial encounter (principal); M54.50 Low back pain, unspecified; Z88.0 Allergy status to penicillin; Z88.8 Allergy status to other drugs, medicaments and biological substances; Z79.899 Other long term (current) drug therapy; Z90.710 Acquired absence of both cervix and uterus; Z90.49 Acquired absence of other specified parts of digestive tract; Z87.891 Personal history of nicotine dependence; W57.XXXA Bitten or stung by nonvenomous insect and other nonvenomous arthropods, initial encounter; Y93.89 Activity, other specified; Y92.89 Other specified places as the place of occurrence of the external cause; Y99.8 Other external cause status

== ENCOUNTER 2022-03-04 18:00 | Emergency (ER) | payer MEDICARE ==
[~2022-03-04] VITALS: Wt 66.0 kg
[~2022-03-04 18:00] MED LIST changes: +CEPHALEXIN500 M1 PO; +KENALOG 0.1%80 GM T
[2022-03-04 18:36] LABS: BASO # 0.1 10*3/uL (0.0-0.1); BASO % 0.9 % (0.0-1.0); EOS # 0.1 10*3/uL (0.0-0.4); EOS % 1.1 % (1.0-4.0); HEMATOCRIT 48.4 % (37.0-47.0); LYMPH # 3.5 10*3/uL (1.3-4.4); LYMPH % 37.6 % (27.0-41.0); MEAN CELL VOLUME 106.4 fl (81.0-99.0); MEAN PLATELET VOLUME 9.6 fl (9.6-12.3); MONO # 0.8 10*3/uL (0.1-1.0); MONO % 8.3 % (3.0-9.0); NEUT # 4.7 10*3/uL (2.3-7.9); NEUT % 50.4 % (47.0-73.0); PLATELET COUNT AUTOMATED 242 10*3/uL (130-400); RED BLOOD COUNT 4.55 10*6/uL (4.10-5.10); RED CELL DISTRI WIDTH 12.5 % (0-14.5); WHITE BLOOD COUNT 9.3 10*3/uL (4.8-10.8)
[2022-03-04 18:50] LABS: ACT PARTIAL THROMBO TIME 24.5 SECONDS (20.0-32.1); INTERNATIONAL NORM RATIO 1.1 (2.0-3.5)
[2022-03-04 18:52] LABS: CREATININE 1.15 mg/dL (0.55-1.02); POTASSIUM 3.6 mmol/L (3.5-5.1); TOTAL PROTEIN 6.8 gm/dL (6.4-8.2)
[2022-03-04 19:03] LABS: ARTERIAL BLOOD GAS PO2 206.6 (80-90)
[2022-03-04 19:06] LABS: ABG BASE EXCESS -20.5 mmol/L (-2.0-2.0); ARTERIAL BLOOD GAS PH 6.94 (7.35-7.45)
== END 2022-03-04 23:07 ==
LOC: ED 18:07
PROVIDERS: Emergency Medicine
DX: I46.9 Cardiac arrest, cause unspecified (principal); J44.9 Chronic obstructive pulmonary disease, unspecified; Z88.0 Allergy status to penicillin; Z88.8 Allergy status to other drugs, medicaments and biological substances; Z79.899 Other long term (current) drug therapy; Z90.711 Acquired absence of uterus with remaining cervical stump; Z87.891 Personal history of nicotine dependence; Z98.890 Other specified postprocedural states